=== PATIENT | male | born 1970 | race Caucasian/White ===

== ENCOUNTER 2018-02-20 04:42 | Emergency (ER) | payer BC, OTHER ==
[2018-02-20] MEDS ORDERED: ASPIRIN 81 MG TABLET, CHEWABLE PO ONE (05:30)
--- NOTE | 2018-02-20 05:32 | ER Document Report ---
ED Medical Screen (RME) - General Chief Complaint: General Weakness Stated Complaint: ANXIETY Time Seen by Provider: 02/20/18 05:26 Notes: 47-year-old male that comes by EMS for chief complaint of an episode prior to arrival where he suddenly felt short of breath, tingling all over, slight discomfort in his chest, and thought he was going to pass out. He states he has a history of panic attacks, he took Vistaril, he states he does feel significantly better. He smokes, has hypertension, denies history of [place]. TRAVEL OUTSIDE OF THE [place] IN LAST 30 DAYS: No - Related Data Allergies/Adverse Reactions: Penicillins Allergy (Unknown, Verified 01/27/15 10:27) Past Medical History - Social History Drug Abuse: None - Past Medical History Cardiac Medical History: Reports: Hx Hypertension Renal/ Medical History: Denies: Hx Peritoneal Dialysis Psychiatric Medical History: Reports: Hx Anxiety Traumatic Medical History: Reports: Hx Fractures - ribs - Immunizations Hx Diphtheria, Pertussis, Tetanus Vaccination: Yes Physical Exam - Vital signs Vitals: Temp Pulse Resp BP Pulse Ox 98.1 F 96 17 161/99 H 99 02/20/18 04:48 02/20/18 04:48 02/20/18 04:48 02/20/18 04:48 02/20/18 04:48 - Respiratory Respiratory status: No respiratory distress Breath sounds: Normal - Cardiovascular Rhythm: Regular. No: Tachycardia Heart sounds: Normal auscultation, S1 appreciated, S2 appreciated Course - Vital Signs Vital signs: Temp Pulse Resp BP Pulse Ox 98.1 F 96 17 161/99 H 99 02/20/18 04:48 02/20/18 04:48 02/20/18 04:48 02/20/18 04:48 02/20/18 04:48
[2018-02-20 05:45] LABS: ALANINE AMINOTRANSFERASE 26 U/L (21-72); ALBUMIN 4.1 g/dL (3.5-5.0); ALKALINE PHOSPHATASE 96 U/L (38-126); ANION GAP 11 (5-19); ASPARTATE AMINO TRANSFERASE 38 U/L (17-59); BILIRUBIN,DIRECT 0.3 mg/dL (0.0-0.4); BILIRUBIN,TOTAL 0.8 mg/dL (0.2-1.3); BLOOD UREA NITROGEN 12 mg/dL (7-20); CALCIUM 8.8 mg/dL (8.4-10.2); CARBON DIOXIDE 26 mmol/L (22-30); CHLORIDE 104 mmol/L (98-107); CREATINE KINASE 64 U/L (55-170); GLUCOSE 90 mg/dL (75-110); SODIUM 141.4 mmol/L (137-145); TOTAL PROTEIN 7.1 g/dL (6.3-8.2)
[2018-02-20 05:47] LABS: ABSOLUTE EOSINOPHILS # (AUTO) 0.1 10^3/uL (0.0-0.6); ABSOLUTE LYMPHOCYTES (AUTO) 1.1 10^3/uL (0.5-4.7); ABSOLUTE MONOCYTES (AUTO) 0.4 10^3/uL (0.1-1.4); ABSOLUTE NEUT (AUTO) 5.6 10^3/uL (1.7-8.2); BASOPHILS % (AUTO) 0.3 % (0-2); EOSINOPHILS % (AUTO) 1.1 % (0-6); HEMATOCRIT 48.1 % (37.9-51.0); HEMOGLOBIN 16.5 g/dL (13.5-17.0); LYMPHOCYTES % (AUTO) 14.9 % (13-45); MEAN CORPUSCULAR HEMOGLOBIN 33.3 pg (27.0-33.4); MEAN CORPUSCULAR HGB CONC 34.3 g/dL (32.0-36.0); MEAN CORPUSCULAR VOLUME 97 fl (80-97); PLATELET COUNT 193 10^3/uL (150-450); RED BLOOD COUNT 4.97 10^6/uL (4.35-5.55); RED CELL DISTRIBUTION WIDTH 13.3 % (11.5-14.0); SEGMENTED NEUTROPHILS % (AUTO) 77.7 % (42-78); TOTAL CELLS COUNTED % (AUTO) 100 %; WHITE BLOOD COUNT 7.2 10^3/uL (4.0-10.5)
[2018-02-20 05:57] LABS: CREATINE KINASE MB 0.42 ng/mL (<4.55)
--- NOTE | 2018-02-20 06:03 | RADIOLOGY REPORT (SQ) ---
EXAM DESCRIPTION: XR CHEST 1 VIEW COMPLETED DATE/TME: 02/20/2018 05:30 CLINICAL HISTORY: 47 years, Male, chest pain COMPARISON: None. NUMBER OF VIEWS: One TECHNIQUE: AP view of the chest LIMITATIONS: None. FINDINGS: The lungs are clear. The heart is normal in size. No pneumothorax or pleural effusion. No acute fracture. IMPRESSION: No acute cardiopulmonary abnormality. 2010 [employer]- All Rights Reserved
[2018-02-20 06:05] LABS: TROPONIN I < 0.012 ng/mL
[2018-02-20] MEDS ORDERED: LORAZEPAM INJ 2 MG/1 ML VIAL IV ONE (06:19)
--- NOTE | 2018-02-20 06:27 | ER Document Report ---
ED General <KIMBERLY PAYNE - Last Filed: 02/20/18 06:37> - General Mode of Arrival: Ambulatory Information source: Patient TRAVEL OUTSIDE OF THE [place] IN LAST 30 DAYS: No <BEVERLY LOVING - Last Filed: 02/20/18 10:26> - General Chief Complaint: General Weakness Stated Complaint: ANXIETY Time Seen by Provider: 02/20/18 05:26 Notes: 47-year-old male who presents to the emergency department today with complaints of a panic attack. Patient states he was started on Effexor a few weeks ago for these panic attacks. Patient states he has been having increasing panic attacks over the last 6 months. Patient states "this was one of the worst ones I have had in some time". Patient states he was taking his dog outside to the bathroom, when he arrived back inside is when his pain attack began. Patient states he developed shortness of breath with tingling with this panic attack. Patient states he attempted to go back to sleep but he was unable due to being too anxious. (BEVERLY LOVING) - Related Data Allergies/Adverse Reactions: Penicillins Allergy (Unknown, Verified 01/27/15 10:27) Past Medical History - General Information source: Patient - Social History Smoking Status: Current Every Day Smoker Cigarette use (# per day): Yes Frequency of alcohol use: Heavy Drug Abuse: None Lives with: Family Family History: Reviewed & Not Pertinent Patient has suicidal ideation: No Patient has homicidal ideation: No - Past Medical History Cardiac Medical History: Reports: Hx Hypertension Psychiatric Medical History: Reports: Hx Anxiety Traumatic Medical History: Reports: Hx Fractures - ribs - Immunizations Hx Diphtheria, Pertussis, Tetanus Vaccination: Yes <BEVERLY LOVING - Last Filed: 02/20/18 10:26> Review of Systems - Review of Systems Constitutional: No symptoms reported EENT: No symptoms reported Cardiovascular: No symptoms reported Respiratory: See HPI, Short of breath Gastrointestinal: No symptoms reported Genitourinary: No symptoms reported Male Genitourinary: No symptoms reported Musculoskeletal: No symptoms reported Skin: No symptoms reported Hematologic/Lymphatic: No symptoms reported Neurological/Psychological: See HPI, Anxiety, Tingling -: Yes All other systems reviewed and negative <BEVERLY LOVING - Last Filed: 02/20/18 10:26> Physical Exam <KIMBERLY PAYNE - Last Filed: 02/20/18 06:37> <BEVERLY LOVING - Last Filed: 02/20/18 10:26> - Vital signs Vitals: Temp Pulse Resp BP Pulse Ox 98.1 F 96 17 161/99 H 99 02/20/18 04:48 02/20/18 04:48 02/20/18 04:48 02/20/18 04:48 02/20/18 04:48 - Notes Notes: Physical Exam: General: Alert, appears well. HEENT: Normocephalic. Atraumatic. PERRL. Extraocular movements intact. Oropharynx clear. Neck: Supple. Non-tender. Respiratory: No respiratory distress. Coarse breath sound with rhonchi bilaterally consistent with smoking history. Cardiovascular: Regular rate and rhythm. Abdominal: Normal Inspection. Non-tender. No distension. Normal Bowel Sounds. Back: Non-tender. No deformity or step off. Extremities: Moves all four extremities. Upper extremities: Normal inspection. Normal ROM. Lower extremities: Normal inspection. No edema. Normal ROM. Neurological: Normal cognition. AAOx4. Normal speech. Psychological: Appears slightly anxious. Skin: Warm. Dry. Normal color. (BEVERLY LOVING) Course - Laboratory Result Diagrams: 02/20/18 04:50 02/20/18 04:50 <KIMBERLY PAYNE - Last Filed: 02/20/18 06:37> - Laboratory Result Diagrams: 02/20/18 04:50 02/20/18 04:50 <BEVERLY LOVING - Last Filed: 02/20/18 10:26> - Vital Signs Vital signs: Temp Pulse Resp BP Pulse Ox 98.2 F 88 16 163/81 H 99 02/20/18 06:48 02/20/18 06:48 02/20/18 06:48 02/20/18 06:48 02/20/18 06:48 Discharge <KIMBERLY PAYNE - Last Filed: 02/20/18 06:37> <BEVERLY LOVING - Last Filed: 02/20/18 10:26> - Discharge Clinical Impression: Panic attacks, Anxiety Disposition: HOME, SELF-CARE Additional Instructions: Panic Attack: The cause of panic attacks is unknown. Symptoms can include chest pain, shortness of breath, palpitations, sweats, and a sense of smothering or impending doom. In time, the panic attacks can lead to generalized anxiety and phobias. Because the symptoms can mimic heart attack, pulmonary embolism, and other serious diseases, the physician has evaluated you for these conditions. There is no evidence of a serious problem. An acute panic attack usually goes away by itself without treatment. A severe attack can be treated with medicine to calm you. Long-term, antidepressant medicines may help prevent attacks. Counselling can also be very beneficial in dealing with panic attacks. Panic attacks are less likely if you are getting regular exercise, proper diet, and plenty of sleep. It's normal for panic attacks to cause many frightening symptoms. However, you should call or return if your symptoms change significantly or if you are worsening. Get plenty of rest today. The Effexor you are put on sometimes takes a few weeks to exert its desired effect. If you find the panic attacks continue to increase in frequency and severity despite taking this medication, you should follow-up with your primary care provider to discuss other options. RETURN TO THE EMERGENCY ROOM IF ANY NEW OR WORSENING SYMPTOMS. Forms: Return to Work Scribe Attestation: 02/20/18 06:38 I personally performed the services described in the documentation, reviewed and edited the documentation which was dictated to the scribe in my presence, and it accurately records my words and actions. (KIMBERLY PAYNE) Scribe Documentation - Scribe Written by Ramirez:: Ramirez Ortiz, 02/20/2018 0628 acting as scribe for :: Priti <BEVERLY LOVING - Last Filed: 02/20/18 10:26>
[2018-02-20 06:48] VITALS: BP 163/81
--- NOTE | 2018-02-20 06:54 | EKG REPORT ---
SEVERITY:- NORMAL ECG - SINUS RHYTHM : Confirmed by: Kathleen Almanzar 20-Feb-2018 06:53:50
== END 2018-02-20 06:48 | disposition home or self-care (01) ==
LOC: ER 04:42
DX: F41.0 Panic disorder [episodic paroxysmal anxiety] (principal); F41.9 Anxiety disorder, unspecified; R06.02 Shortness of breath; R20.2 Paresthesia of skin; F17.210 Nicotine dependence, cigarettes, uncomplicated; I10 Essential (primary) hypertension; Z88.0 Allergy status to penicillin
CPT/HCPCS: 93005; 99285; 96374; 36415; 82553; 82550; 85025; 80053; 84484; 71045; 93010; J2060

== ENCOUNTER → 2018-04-19 | Outpatient (CLI) | payer BC ==
--- NOTE | 2018-04-19 16:19 | RADIOLOGY REPORT (SQ) ---
EXAM DESCRIPTION: U/S SCROTUM W/DOPPLER COMPLETED DATE/TIME: 04/19/2018 4:03 pm REASON FOR STUDY: N50.812 TESTICULAR PAIN,LEFT N50.812 LEFT TESTICULAR PAIN COMPARISON: Scrotal ultrasound 01/17/2012 TECHNIQUE: Static and realtime samayoa scale imaging of the scrotum and testes. Selected color Doppler and spectral images recorded to document blood flow. LIMITATIONS: None. FINDINGS: RIGHT: TESTICLE: Normal size, 4.5 x 3.6 x 2.3 cm. Normal echotexture. Normal blood flow. No mass. EPIDIDYMIS: Normal. HYDROCELE OR VARICOCELE: Small right scrotal hydrocele with debris HERNIA OR EXTRA-TESTICULAR MASS: No. OTHER: No other significant finding. LEFT: TESTICLE: Normal size, 3.8 x 2.8 x 2.1 cm. Normal echotexture. Normal blood flow. No mass. EPIDIDYMIS: Normal. HYDROCELE OR VARICOCELE: No. HERNIA OR EXTRA-TESTICULAR MASS: No. OTHER: No other significant finding. IMPRESSION: No ultrasound evidence of testicular torsion. Small right hydrocele is present, nonspecific TECHNICAL DOCUMENTATION: JOB ID: [id number] [employer]- All Rights Reserved Reading location - IP/workstation name: [email or web address]
== END ==
LOC: RAD 18:01
PROVIDERS: ATTEND Nurse Practitioner Family
DX: N50.812 Left testicular pain (principal)
CPT/HCPCS: 76870; 93976